=== PATIENT | female | born 2000 | race Caucasian/White ===

== ENCOUNTER 2022-01-21 13:55 | Outpatient (CLI) | payer OTHER, SELFPAY ==
--- NOTE | ~2022-01-21 | US_ITS ---
US thyroid INDICATION: Thyroid nodule TECHNIQUE: Real-time sonographic images of the thyroid gland were obtained. COMPARISON: No prior studies for comparison. FINDINGS: The right thyroid lobe measures 5.2 x 2.6 x 1.3 cm. The left thyroid lobe measures 3.3 x 1 .5 x 1.4 cm. There is normal echotexture and echogenicity throughout the thyroid gland. No discrete n odules identified. Normal vascular flow is present. IMPRESSION: 1. Normal thyroid without discrete nodule or abnormal vascularity. Reviewed, dictated and finalized at location B. R ENGINEER
== END 2022-01-21 13:56 | disposition home or self-care (01) ==
DX: E04.1 Nontoxic single thyroid nodule (principal)
CPT/HCPCS: 76536

== ENCOUNTER 2022-03-03 14:21 | Emergency (ER) | payer OTHER, SELFPAY ==
[2022-03-03 14:22] VITALS: BP 137/72; PULSE 94; RESP 14; TEMP 36.5; O2SAT 100
--- NOTE | 2022-03-03 17:08 | ED.URI ---
HPI - URI/Sore Throat General Chief Complaint: Upper Respiratory Infection Stated Complaint: sore throat Time Seen by Provider: 03/03/22 16:55 History of Present Illness HPI Narrative: 19-year-old female presents the emergency room with complaints of sore throat. Patient states that she has thyroid nodules and feels that they are swollen at this time. Her sore throat is associated with postnasal drip and frequently clearing her throat. Denies fever, sneezing, or rhinorrhea. Review of Systems Review of Systems: CONSTITUTIONAL: Denies fever, chills, or sweats. EYES: Denies visual changes, redness, or discharge. ENT: Reports sore throat, postnasal drip CARDIOVASCULAR: Denies chest pain, palpitations, or edema. RESPIRATORY: Denies cough or dyspnea. GASTROINTESTINAL: Denies abdominal pain, nausea, vomiting, or diarrhea. GENITOURINARY: Denies dysuria or hematuria. SKIN: Denies rash or itching. MUSCULOSKELETAL: Denies back pain, joint pain, or myalgia. NEUROLOGIC: Denies headache, numbness, dizziness, or weakness. PSYCHIATRIC: Denies anxiety or depression. Exam Narrative: GENERAL: Well-appearing, well-nourished, and in no acute distress. HEAD: Normocephalic, atraumatic. EYES: PERRLA and EOMI. ENT: Nares clear, no rhinorrhea or epistaxis. Mucous membranes moist. Oropharynx without tonsillar hypertrophy exudate or other lesions. Mild oropharyngeal erythema. Bilateral TMs pearly king nonbulging NECK: Supple. Bilateral cervical adenopathy CHEST: Clear to auscultation. No respiratory distress. No wheezes rales or rhonchi HEART: Regular rate and rhythm. No murmur heard. Normal peripheral pulses. ABDOMEN: Soft, nontender, nondistended, normal active bowel sounds. EXTREMITIES: Normal range of motion. No edema. SKIN: Warm, dry, no rash. NEURO: No focal deficits. Alert and oriented x3. PSYCH: Normal mood and affect. Course Vital Signs Vital signs: Vital Signs Temperature 36.5 C 03/03/22 14: Pulse Rate 94 03/03/22 14:22 Respiratory Rate 14 03/03/22 14:22 Blood Pressure 137/72 03/03/22 14:22 Pulse Oximetry 100 03/03/22 14:22 Temperature 36.5 C 03/03/22 14:22 Pulse Rate 94 03/03/22 14:22 Respiratory Rate 14 03/03/22 14:22 Blood Pressure 137/72 03/03/22 14:22 Pulse Oximetry 100 03/03/22 14:22 Discharge Plan Discharge Clinical Impression: Viral infection Patient Disposition: Home, Self-Care Condition: Stable Instructions: Antibiotic Form Prescriptions: New prednisone 20 mg tablet 40 mg PO BID Qty: 10 RF: 0 Follow-up/Referrals: PHYSICIAN NOT ON STAFF,NONSTAFF [Primary Care Provider] - Time of Disposition: 17:11
[2022-03-03 17:31] VITALS: BP 110/64; PULSE 71; RESP 16; TEMP 36.6; O2SAT 98
== END 2022-03-03 18:00 | disposition home or self-care (01) ==
PROVIDERS: Emergency Provider Nurse Practitioner Family
DX: B34.9 Viral infection, unspecified (principal)
CPT/HCPCS: 96372; 99283; J1100